=== PATIENT | male | born 1965 | race Caucasian/White ===

== ENCOUNTER 2020-07-21 08:29 | Day surgery (SDC) | payer BC ==
[~2020-07-21] VITALS: Ht 177.8 cm; Wt 64.0 kg
[~2020-07-21 08:29] MED LIST: BUPIVACAINE/PF 0.5% ONE; EPINEPHRINE 1 MG/ML, 1ML ONE
[2020-07-21] MEDS ORDERED: CHLORHEXIDINE 15 ML UDC MM STA (08:44)
[2020-07-21 08:59] VITALS: BP 113/76
[2020-07-21] MEDS ORDERED: MIDAZOLAM 1 MG/ML, 2ML ONE (09:07)
[2020-07-21] MEDS ORDERED: FENTANYL PF 250 MCG/5ML ONE (09:09)
[2020-07-21] MEDS ORDERED: LACTATED RINGERS 1,000 ML IV SCH (09:22)
[2020-07-21] MEDS ORDERED: ROCURONIUM 10MG/ML,5ML ONE (09:36)
[2020-07-21] MEDS ORDERED: PROPOFOL 10 MG/ML, 20ML ONE (09:36)
[2020-07-21] MEDS ORDERED: EPHEDRINE 50 MG/ML, 1ML ONE (09:36)
[2020-07-21] MEDS ORDERED: PHENYLEPHRINE 10 MG/ML ONE (09:36)
[2020-07-21] MEDS ORDERED: BUPIVACAINE/PF-EPI 0.5% 1:200K INFIL ONE (09:59)
[2020-07-21] MEDS ORDERED: ONDANSETRON 2MG/ML, 2ML ONE (10:15)
[2020-07-21] MEDS ORDERED: GLYCOPYRROLATE 0.2MG/1ML, 5ML ONE (10:15)
[2020-07-21] MEDS ORDERED: NEOSTIGMINE 1 MG/ML, 10ML ONE (10:15)
[2020-07-21] MEDS ORDERED: CEFAZOLIN 1,000 MG ONE (10:15)
[2020-07-21] MEDS ORDERED: SUCCINYLCHOLINE 20 MG/ML, 10ML ONE (10:15)
[2020-07-21] MEDS ORDERED: DEXAMETHASONE 4 MG/ML, 1ML ONE (10:15)
[2020-07-21] MEDS ORDERED: MEPERIDINE/PF 25MG/0.5ML IVPush PRN (10:30)
[2020-07-21] MEDS ORDERED: FENTANYL PF 100 MCG/2ML IV PRN (10:30)
[2020-07-21] MEDS ORDERED: hydrALAzine 20 MG/ML, 1ML IV PRN (10:30)
[2020-07-21] MEDS ORDERED: PROMETHAZINE 25 MG/ML, 1ML IV PRN (10:30)
[2020-07-21] MEDS ORDERED: ALBUTEROL SULFATE 2.5 MG/3 ML NPPB PRN (10:30)
[2020-07-21] MEDS ORDERED: ACETAMINOPHEN 325 MG TABLET PO PRN (10:30)
[2020-07-21] MEDS ORDERED: OXYcodone 5 MG/5 ML ORAL.SOL UDC PO PRN (10:30)
[2020-07-21] MEDS ORDERED: LABETALOL 5MG/ML, 20ML IV PRN (10:30)
[2020-07-21] MEDS ORDERED: KETOROLAC 30 MG/1 ML IV PRN (10:30)
[2020-07-21] MEDS ORDERED: DIAZEPAM 5 MG/ML, 2ML IVPush PRN (10:30)
[2020-07-21] MEDS ORDERED: HYDROmorphone 2 MG/ML, 1ML IVPush PRN (10:30)
== END 2020-07-21 12:45 | disposition home or self-care (01) ==
LOC: OUT 08:29
PROVIDERS: ATTEND Surgery
DX: K40.90 Unilateral inguinal hernia, without obstruction or gangrene, not specified as recurrent (principal); F17.210 Nicotine dependence, cigarettes, uncomplicated; Z90.49 Acquired absence of other specified parts of digestive tract; Z98.890 Other specified postprocedural states; Z72.89 Other problems related to lifestyle; Z20.828 Contact with and (suspected) exposure to other viral communicable diseases
CPT/HCPCS: 36415; 49505; 87635; C1781; J0171; J0690; J1100; J2250; J2370; J2405; J2704; J2710; J3010; J7120; J0330